=== PATIENT | male | born 1960 | race Caucasian/White ===

== ENCOUNTER 2020-03-25 15:48 | Emergency (ER) | payer OTHER ==
[~2020-03-25] VITALS: Ht 180.3 cm; Wt 84.1 kg
[2020-03-25 16:10] VITALS: Ht 180.3 cm; Wt 84.1 kg
[2020-03-25] MEDS ORDERED: BUPRENORPHIN-N1 EACH SL (16:12)
[2020-03-25] MEDS ORDERED: MOTRIN600 MG PO (16:13)
[2020-03-25] MEDS ORDERED: FOLIC ACID1 MG PO (16:13)
[2020-03-25] MEDS ORDERED: MOBIC7.5 MG PO (16:13)
[2020-03-25 17:03] LABS: BASOPHILS 0.5 % (0-2); EOSINOPHILS 5.7 % (0-7); HEMATOCRIT 29.2 % (42.0-54.0); IMMATURE GRANULOCYTES 0.2 % (0-5); LYMPHOCYTES 20.7 % (15-50); MCH 35.6 pg (26.0-34.0); MCHC 30.8 g/dL (31.0-37.0); MCV 115.4 fL (80.0-100.0); MONOCYTES 12.5 % (2-11); NEUTROPHILS 60.4 % (40-80); PLATELET COUNT 211 10x3/uL (130-400); RBC 2.53 10x6/uL (4.20-6.10); WBC 6.6 10x3/uL (4.8-10.8)
[2020-03-25 17:22] LABS: CALC OSMOLALITY 282 mosm/kg (275-300); CALCIUM 8.4 mg/dL (8.5-10.1); CARBON DIOXIDE 28.1 mmol/L (21.0-32.0); CHLORIDE - SERUM 107 mmol/L (98-107); GLUCOSE 97 mg/dL (74-106); POTASSIUM - SERUM 4.4 mmol/L (3.5-5.1); SODIUM 141 mmol/L (136-145); UREA NITROGEN 17 mg/dL (7-18); eGFR NON AFRICAN AMERICAN 81 mL/min (90-120)
[2020-03-25 17:29] LABS: ALBUMIN 3.3 g/dL (3.4-5.0); ALKALINE PHOSPHATASE 81 U/L (30-120); ALT (SGPT) 23 U/L (10-68); BILIRUBIN - TOTAL 0.61 mg/dL (0.2-1.3)
[2020-03-25] MEDS ORDERED: VISTARIL50 MG PO (17:55)
[2020-03-25] MEDS ORDERED: CLEOCIN HCL300 MG PO (17:55)
[2020-03-25] MEDS ORDERED: PERMETHRIN60 GM TOPICAL (17:55)
[2020-03-25 18:49] VITALS: BP 148/74
== END 2020-03-25 18:50 | disposition home or self-care (01) ==
LOC: D.ER 15:48
PROVIDERS: Family Medicine
DX: B88.9 Infestation, unspecified (principal); D64.9 Anemia, unspecified; L73.9 Follicular disorder, unspecified